=== PATIENT | male | born 1935 | race Caucasian/White ===

== ENCOUNTER → 2016-12-09 | Outpatient (CLI) | payer MEDICARE, BC | END | disposition home or self-care (01) | LOC: LABWHC1 13:45 | PROVIDERS: ATTEND Urology | DX: C61 Malignant neoplasm of prostate (principal) | CPT/HCPCS: 36415; 84153 ==

== ENCOUNTER → 2017-12-13 | Outpatient (CLI) | payer MEDICARE, BC | LOC: LABWHC1 15:31 | PROVIDERS: ATTEND Urology | DX: C61 Malignant neoplasm of prostate (principal); R97.21 Rising PSA following treatment for malignant neoplasm of prostate | CPT/HCPCS: 36415; 84153 ==

== ENCOUNTER → 2017-12-22 | Day surgery (SDC) | payer MEDICARE, BC ==
[2017-12-20 11:33] VITALS: BMI 24.2
[~2017-12-22] MED LIST: LACTATED RINGERS 1,000 ML IV ONE; LIDOCAINE 1% 20 ML VIAL (10MG/ML) FOR IV START INTRADERMA ONE; LIDOCAINE HCL/PF 20 MG/ML 10 ML AMP ONE; PROPOFOL 10 MG/ML 20 ML VIAL IV ONE
[2017-12-22 11:37] VITALS: RESP 16; TEMP 98.4
--- NOTE | 2017-12-22 11:55 | P.PCN ---
Date of Procedure: 12/22/17 Procedure(s) Performed: BRIEF HISTORY: Patient is a 82-year-old, pleasant, male, scheduled for an upper endoscopy as a part of evaluation of persistent dysphagia to solids for the last several months years duration. Symptoms have been progressively getting worse for the last 1 year. He feels the food gets stuck in his throat area. He denies any odynophagia. He reports no heartburn. In view of the symptoms he scheduled for an upper endoscopy with possible dilation. Last upper endoscopy was done and now 1999 for the similar symptoms and was unremarkable. PROCEDURE PERFORMED: Esophagogastroduodenoscopy with biopsy. PREOPERATIVE DIAGNOSIS: Progressive dysphagia to solids of several years duration.. IV sedation per anesthesia. PROCEDURE: After informed consent was obtained, the patient was brought into the endoscopy unit. IV sedation was administered by Anesthesia under continuous monitoring. Initially the Olympus GIF-140 video endoscope was inserted into the mouth. Esophagus intubated without any difficulty. It was gradually advanced into the stomach and duodenum and carefully examined. The bulb and the second part of the duodenum appeared normal. The scope at this time was withdrawn to the stomach, adequately insufflated with air, and upon careful examination, mucosa of the antrum, body, cardia and the fundus appeared normal. The scope was then withdrawn into the esophagus. Small to moderate size hiatal hernia noted. The GE junction was located at 36 cm from the incisors. There was short segment of Hoang's esophagus and a 5 mm proximal to the GE junction and this was biopsied. The rest of the esophagus appeared normal. There were no erosions or ulcerations seen area and the proximal. The esophagus was carefully examined and there was no Zenker's diverticulum or esophageal web identified. It appeared normal and the patient tolerated the procedure well. IMPRESSION: 1. Normal-appearing esophagus with no evidence of esophagitis, esophageal stricture or Zenker's diverticulum. 2. Small to moderate hiatal hernia/short segment Hoang's esophagus. RECOMMENDATIONS: The findings of this examination were discussed with the patient as well as his family. He was advised to follow with the biopsy results. He will continue with soft diet. If the biopsy confirms the presence of Hoang's esophagus he can have a repeat upper endoscopy in 2-3 years.
[2017-12-22 12:17] VITALS: BP 152/88; PULSE 72
== END ==
LOC: ORWHC2ENDO 09:44
PROVIDERS: ATTEND Internal Medicine Gastroenterology
DX: K21.0 Gastro-esophageal reflux disease with esophagitis (principal); K22.70 Barrett's esophagus without dysplasia; K44.9 Diaphragmatic hernia without obstruction or gangrene; E78.5 Hyperlipidemia, unspecified; F41.9 Anxiety disorder, unspecified; Z79.82 Long term (current) use of aspirin; Z79.899 Other long term (current) drug therapy; Z90.79 Acquired absence of other genital organ(s)
CPT/HCPCS: 88305; 43239; J2001; J2704

== ENCOUNTER → 2018-02-09 | Outpatient (CLI) | payer MEDICARE, BC ==
--- NOTE | 2018-02-10 07:22 | US ---
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 EXAM MEASUREMENTS: Right Kidney: 10.5 x 6.1 x 4.5 cm Left Kidney: 10.6 x 4.4 x 5.6 cm Post Void Residual Volume: 17.1 ml Right Kidney: Solid, hyperechoic mass is seen mid lateral cortex = 2.5 x 3.2 x 2.3cm and internal vas cularity is noted mid mass Left Kidney: No hydronephrosis or masses seen Bladder: wnl Bilateral Jets seen: not seen after 3 minute observation Normal Post Void Residual: yes IMPRESSION: 1. Solid mass right kidney. CT of the kidneys is advised for further evaluation.
== END | disposition home or self-care (01) ==
LOC: RADUSWWP 15:41
PROVIDERS: ATTEND Internal Medicine Geriatric Medicine
DX: N28.89 Other specified disorders of kidney and ureter (principal)
CPT/HCPCS: 76770

== ENCOUNTER → 2018-02-18 | Outpatient (CLI) | payer MEDICARE, BC ==
--- NOTE | 2018-02-20 17:43 | CT ---
EXAMINATION TYPE: CT abdomen wo/w con DATE OF EXAM: 02/18/2018 COMPARISON: Renal ultrasound dated 02/02/1718 HISTORY: Right renal mass. CT DLP: 461.9 mGycm Automated exposure control for dose reduction was used. TECHNIQUE: Helical acquisition of images was performed from the lung bases through the top of iliac crest to include entire abdomen. CONTRAST: Performed with Oral Contrast and without and with IV Contrast, patient injected with 100ml mL of Isov ue M300. FINDINGS: LUNG BASES: No significant abnormality is appreciated. LIVER/GB: The liver is unremarkable without focal mass. Gallbladder surgically absent. No intrahepati c biliary ductal dilatation. PANCREAS: Unremarkable enhancement without ductal dilatation. SPLEEN: No significant abnormality is seen. ADRENALS: Overall symmetric without focal nodularity. KIDNEYS: There is a suspicious enhancing right midpole solid renal mass measuring approximately 2.3 x 2.1 x 2.9 cm measured on series 7 image 23 and series 14 image 53. There is no enlargement or eviden ce of current invasion of the right renal vein. This is located within 2 mm of a mid pole calyx and t herefore the patient may not be a candidate for cryotherapy/RFA ablation. No other renal masses are s een bilaterally. Incidental note is made of a retroaortic right renal vein. No local surrounding nguyễn opathy is seen. No extension past heterogenous fascia. BOWEL: Scattered colonic diverticula are small without pericolonic fat stranding. No dilated large o r small bowel. There is decompression of the gastroesophageal junction and therefore incomplete evalu ation. Prominence at this level could relate to a small hiatal hernia. LYMPH NODES: No greater than 1 cm short axis lymph nodes are seen within the abdomen. OSSEOUS STRUCTURES: There are moderate multilevel degenerative changes of the visualized spine witho ut suspicious osseous lesion. 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 No suspicious o sseous lesions are visualized. FREE AIR: No free air is visualized. OTHER: There is extensive atherosclerosis of the abdominal aorta and its branches. IMPRESSION: SOLITARY SOLID ENHANCING 2.9 CM RIGHT MIDPOLE RENAL MASS THAT SHOULD BE CONSIDERED RENAL CELL CARCINO MA UNTIL PROVEN OTHERWISE. PERCUTANEOUS BIOPSY COULD BE PERFORMED. THIS IS WITHIN 2 MM OF A MINOR GABRIEL YX AND THEREFORE THE PATIENT MAY NOT BE A CANDIDATE FOR CRYOTHERAPY OR RFA ABLATION. NO CURRENT EVIDE NCE OF RENAL VEIN INVASION, SURROUNDING ADENOPATHY, OR SUSPICIOUS OSSEOUS METASTASIS.
== END | disposition home or self-care (01) ==
LOC: RADCTMAIN 15:30
PROVIDERS: ATTEND Urology
DX: N28.89 Other specified disorders of kidney and ureter (principal)
CPT/HCPCS: 82565; 84520; 74170; 36415; Q9967

== ENCOUNTER → 2018-04-13 | Outpatient (CLI) | payer MEDICARE, BC ==
--- NOTE | 2018-04-13 11:15 | FL ---
EXAMINATION TYPE: FL barium swallow DATE OF EXAM: 04/13/2018 COMPARISON: None HISTORY: Dysphasia TECHNIQUE: A double air contrast UGI study is performed. FINDINGS: Fluoroscopy time: 58 seconds Images: 24 Esophagus dilates to normal caliber has normal contour to the gastroesophageal junction. Small hiatal hernia is present. Gastroesophageal reflux was evident during this examination to the proximal esoph godfrey. There was episodes of coughing associated. Secondary tertiary contractions were evident. There is incomplete stripping of esophageal bolus the horizontal drinking position. IMPRESSIONS: 1. Gastroesophageal reflux to the proximal esophagus with coughing. 2. Presbyesophagus.
== END | disposition home or self-care (01) ==
LOC: RADFLWHC 10:10
PROVIDERS: ATTEND Otolaryngology
DX: K21.9 Gastro-esophageal reflux disease without esophagitis (principal); K22.8 Other specified diseases of esophagus
CPT/HCPCS: 74220

== ENCOUNTER → 2018-04-19 | Outpatient (CLI) | payer MEDICARE, BC ==
[2018-04-19 14:07] LABS: Basophils % (A) 1 %; Eosinophils # (A) 0.1 k/uL (0-0.7); Eosinophils % (A) 3 %; HCT 37.9 % (39.0-53.0); HGB 12.7 gm/dL (13.0-17.5); Lymphocytes # (A) 1.2 k/uL (1.0-4.8); Lymphocytes % (A) 22 %; MCH 31.3 pg (25.0-35.0); MCHC 33.5 g/dL (31.0-37.0); MCV 93.7 fL (80.0-100.0); Mean Platelet Volume 6.4; Monocytes # (A) 0.3 k/uL (0-1.0); Monocytes % (A) 6 %; Neutrophils # (A) 3.4 k/uL (1.3-7.7); Neutrophils % (A) 66 %; Platelet Count 227 k/uL (150-450); RBC 4.05 m/uL (4.30-5.90); WBC 5.2 k/uL (3.8-10.6)
[2018-04-19 14:17] LABS: Anion Gap 5 mmol/L; Blood Urea Nitrogen 13 mg/dL (9-20); Calcium 8.8 mg/dL (8.4-10.2); Carbon Dioxide 28 mmol/L (22-30); Chloride 105 mmol/L (98-107); Glucose 98 mg/dL (74-99); Potassium 4.2 mmol/L (3.5-5.1); Sodium 138 mmol/L (137-145)
== END | disposition home or self-care (01) ==
LOC: LABWHC1 13:35
PROVIDERS: ATTEND Urology
DX: Z01.812 Encounter for preprocedural laboratory examination (principal); N28.89 Other specified disorders of kidney and ureter; E78.00 Pure hypercholesterolemia, unspecified; R35.0 Frequency of micturition; R31.29 Other microscopic hematuria; D41.11 Neoplasm of uncertain behavior of right renal pelvis
CPT/HCPCS: 36415; 80048; 85025; 86850; 86900; 86901; 87086

== ENCOUNTER → 2018-06-08 | Outpatient (CLI) | payer MEDICARE, BC ==
[2018-06-08 12:21] LABS: Basophils % (A) 1 %; Eosinophils # (A) 0.1 k/uL (0-0.7); Eosinophils % (A) 2 %; HCT 42.5 % (39.0-53.0); HGB 13.4 gm/dL (13.0-17.5); Lymphocytes % (A) 20 %; MCH 30.1 pg (25.0-35.0); MCHC 31.5 g/dL (31.0-37.0); MCV 95.4 fL (80.0-100.0); Mean Platelet Volume 6.4; Monocytes # (A) 0.3 k/uL (0-1.0); Monocytes % (A) 7 %; Neutrophils # (A) 3.3 k/uL (1.3-7.7); Neutrophils % (A) 69 %; Platelet Count 335 k/uL (150-450); RBC 4.46 m/uL (4.30-5.90); RDW 13.7 % (11.5-15.5); WBC 4.8 k/uL (3.8-10.6)
[2018-06-08 13:06] LABS: Calcium 9.5 mg/dL (8.4-10.2); Potassium 4.5 mmol/L (3.5-5.1)
== END ==
LOC: LABPAT 11:24
PROVIDERS: ATTEND Urology
DX: Z01.812 Encounter for preprocedural laboratory examination (principal); D41.11 Neoplasm of uncertain behavior of right renal pelvis; E78.00 Pure hypercholesterolemia, unspecified; R31.29 Other microscopic hematuria; R35.0 Frequency of micturition
CPT/HCPCS: 36415; 80048; 85025; 86850; 86900; 86901; 87086

== ENCOUNTER → 2018-06-09 | Outpatient (CLI) | payer MEDICARE, BC | LOC: LABWHC1 11:15 | PROVIDERS: ATTEND Urology | DX: Z01.818 Encounter for other preprocedural examination (principal) | CPT/HCPCS: 36415; 93005 ==

== ENCOUNTER → 2018-08-26 | Outpatient (CLI) | payer MEDICARE, BC ==
--- NOTE | 2018-08-26 11:40 | FL ---
COMPARISON: NONE DATE OF EXAM: 08/26/2018 HISTORY: Dysphasia A number of thin and thick substances were ingested under the care of the department of speech pathol ogy. There is no evidence of aspiration or penetration. There is no evidence of obstruction. There is mild pooling within the vallecula and piriform sinus. 1.03 seconds of fluoroscopy utilized. No im ages submitted. IMPRESSION: 1. No evidence of aspiration or penetration.
== END | disposition home or self-care (01) ==
LOC: RADFLMAIN 10:53
PROVIDERS: ATTEND Otolaryngology
DX: R13.10 Dysphagia, unspecified (principal)
CPT/HCPCS: 74230

== ENCOUNTER → 2018-09-30 | Outpatient (CLI) | payer MEDICARE, BC ==
--- NOTE | 2018-09-30 14:21 | CT ---
EXAMINATION TYPE: CT abdomen w con DATE OF EXAM: 09/30/2018 COMPARISON: CT abdomen 02/18/2018 INDICATION: Kidney CA DLP: 513 mGycm, Automated exposure control for dose reduction was used. CONTRAST: 100 mL of Isovue 300. Study performed with Oral Contrast TECHNIQUE: Axial images were obtained from above the diaphragm to the pubic rami in the axial plane a t 5 mm thick sections. Reconstructed images are reviewed on the computer in the coronal plane. FINDINGS: Limited CT sections are obtained the lung bases. The lung bases are clear. CT ABDOMEN: Liver: Mild fatty infiltration may be present. Spleen: Normal Pancreas: Normal. Pancreatic duct is at the upper limits of normal. Adrenal glands: The adrenal glands are normal. Gallbladder: Surgically absent. Kidneys: No masses are evident. No hydronephrosis is present. There is low density extending from t he mid right renal cortex in the introitus fascia. This has irregular borders could be some fluid col lection. This measures 20 Hounsfield units. This may be 5.9 cm cranial caudal x 3.6 x 1.9 cm. Hemorrh age and urinoma considered. No enhancement is evident. This is at the level of the previous mass. De layed images were obtained through the kidneys, which remain unremarkable. Aorta: Vascular calcification is within the aorta. Right renal artery is retrocaval. Inferior vena cava: Normal. There is a retroaortic left renal vein. IMPRESSIONS: 1. Fluidlike collection extending from the kidney at the previous right renal mass location. Hematom a is considered most likely. Urinoma could be considered.
== END ==
LOC: RADCTMAIN 09:45
PROVIDERS: ATTEND Urology
DX: C64.1 Malignant neoplasm of right kidney, except renal pelvis (principal)
CPT/HCPCS: 82565; 84520; 74160; 36415; Q9967

== ENCOUNTER → 2019-06-23 | Outpatient (CLI) | payer MEDICARE, BC ==
[2019-06-23 09:06] LABS: Albumin 4.7 g/dL (3.5-5.0); Calcium 9.8 mg/dL (8.4-10.2); Potassium 4.1 mmol/L (3.5-5.1); Total Protein 7.6 g/dL (6.3-8.2)
--- NOTE | 2019-06-23 09:28 | XR ---
EXAMINATION TYPE: XR chest 2V DATE OF EXAM: 06/23/2019 COMPARISON: 11/28/2018 HISTORY: History of renal cell carcinoma. Physical exam. TECHNIQUE: Frontal and lateral views of the chest are obtained. FINDINGS: There is no focal air space opacity, pleural effusion, or pneumothorax seen. There is even tration of the right hemidiaphragm. The cardiac silhouette size is within normal limits. The osseou s structures are intact. Mild multilevel degenerative changes of the spine. Flattening of the diaphra gms on the lateral view indicative of underlying COPD. IMPRESSION: No acute cardiopulmonary process.
--- NOTE | 2019-06-23 10:51 | CT ---
EXAMINATION TYPE: CT abdomen w con DATE OF EXAM: 06/23/2019 COMPARISON: 09/30/2018 and 02/18/2018 HISTORY: 83-year-old male history of Renal cancer. Right kidney surgery last year. TECHNIQUE: Contiguous axial scanning of the abdomen following administration of 100 ml Isovue 300 IV contrast. Delayed images through the kidneys and coronal/sagittal reconstructions performed. CT DLP: 338.5 mGycm Automated exposure control for dose reduction was used. FINDINGS: Heart normal size without pericardial effusion. Coronary vessel calcifications are present. Lung base s clear without pleural effusion. No focal liver lesion or biliary ductal dilatation. Portal venous system is patent. Cholecystectomy clips. Adrenal glands, left kidney, spleen, and bilateral atrophic pancreas show no gross organomegaly. Retroaortic left renal vein. Redemonstrated postsurgical changes of resection along the lateral right kidney. The resection defect is redemonstrated at the mid pole with focal fluid and density interposed at the resection defect an d in the adjacent pararenal space currently measuring 2.8 cm versus 3.6 cm, previously. There is some intermingled fat now seen. No suspicious soft tissue nodularity or recurrent enhancing mass identifi ed. Moderate atherosclerotic calcifications abdominal aorta and iliac arteries. Moderate colonic stool and left-sided colonic diverticulosis. No dilated small bowel, free fluid, or free air. No mesenteric or retroperitoneal lymphadenopathy see n in the upper or midabdomen. The pelvis is not imaged. Bones: Degenerative changes at the SI joints. Mild to moderate degenerative disc disease throughout t he lumbar spine. Facet arthropathy lower lumbar spine. Stable bilateral L5 pars defects with grade 1 anterolisthesis at L5-S1. IMPRESSION: 1. REDEMONSTRATED RESECTION DEFECT ALONG THE LATERAL RIGHT KIDNEY WITH INTERPOSED POST SURGICAL FLUID EXTENDING INTO THE ADJACENT PARARENAL SPACE. THIS IS SLIGHTLY SMALLER NOW MEASURING 2.8 CM VERSUS 3. 6 CM, PREVIOUSLY. 2. NO SUSPICIOUS SOFT TISSUE NODULARITY OR RECURRENT ENHANCING MASS IS IDENTIFIED TO SUGGEST LOCOREGI ONAL RECURRENCE. NO EVIDENCE FOR METASTATIC DISEASE IN THE ABDOMEN. 3. 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
== END ==
LOC: RADCTMAIN 08:24
PROVIDERS: ATTEND Urology
DX: C64.1 Malignant neoplasm of right kidney, except renal pelvis (principal); C61 Malignant neoplasm of prostate; Z98.890 Other specified postprocedural states
CPT/HCPCS: 84153; 80053; 71046; 74160; 36415; Q9967

== ENCOUNTER → 2020-03-05 | Outpatient (CLI) | payer MEDICARE, BC ==
--- NOTE | 2020-03-05 13:00 | XR ---
EXAMINATION TYPE: XR chest 2V DATE OF EXAM: 03/05/2020 COMPARISON: 06/23/2019 HISTORY: 84-year-old male C64.1, renal cancer TECHNIQUE: Frontal and lateral views FINDINGS: The cardiomediastinal silhouette, aorta, and pulmonary vasculature are within normal limits. Lungs an d pleural spaces are clear. IMPRESSION: No acute cardiopulmonary process.
== END | disposition home or self-care (01) ==
LOC: RADXRMAIN 11:05
PROVIDERS: ATTEND Urology
DX: C64.1 Malignant neoplasm of right kidney, except renal pelvis (principal)
CPT/HCPCS: 71046

== ENCOUNTER → 2020-06-24 | Outpatient (CLI) | payer MEDICARE, BC ==
--- NOTE | 2020-06-24 11:49 | XR ---
EXAMINATION TYPE: XR chest 2V DATE OF EXAM: 06/24/2020 COMPARISON: 03/05/2020 HISTORY: Shortness of breath TECHNIQUE: Frontal and lateral views of the chest are obtained. FINDINGS: Scattered senescent parenchymal changes noted. Hyperinflation compatible with COPD. No evidence for infiltrate. No evidence for atelectasis. Heart size is stable. Mediastinal structures are stable and grossly unremarkable. No evidence for hilar prominence. Degenerative changes dorsal spine. IMPRESSION: 1. No evidence for acute pulmonary disease.
[2020-06-24 12:30] LABS: Albumin 4.4 g/dL (3.5-5.0); Calcium 9.5 mg/dL (8.4-10.2); Potassium 4.7 mmol/L (3.5-5.1); Total Bilirubin 0.9 mg/dL (0.2-1.3); Total Protein 6.9 g/dL (6.3-8.2)
--- NOTE | 2020-06-24 13:14 | CT ---
EXAMINATION TYPE: CT abdomen w con DATE OF EXAM: 06/24/2020 COMPARISON: CT abdomen June 23, 2019 and older CTs HISTORY: renal CA CT DLP: 303.3 mGycm, Automated Exposure Control for Dose Reduction was Utilized. CONTRAST: CT scan of the abdomen is performed with oral and with IV Contrast, patient injected with 100 mL of I sovue 300. FINDINGS: LUNG BASES: Mild posterior bibasilar linear scarring redemonstrated. Coronary artery calcification in the RCA distribution noted. LIVER/GB: Cholecystectomy clips redemonstrated. PANCREAS: No significant abnormality is seen. SPLEEN: No significant abnormality is seen. ADRENALS: No significant abnormality is seen. KIDNEYS: Symmetrical nodular uptake and excretion without concerning solid or cystic renal mass or hy dronephrosis bilaterally. Stable cortical defect with ill-defined soft tissue laterally midpole of th e right kidney shows no significant interval change from most recent CT. No enlargement or new enhanc ement noted. Retroaortic left renal vein which is normal variant. BOWEL: The oral contrast reaches level of the terminal ileum. No suspicious small or large bowel dila tation. Diverticula in the left colon. LYMPH NODES: No new greater than 1cm abdominal lymph nodes are appreciated. OSSEOUS STRUCTURES: Multilevel spurring in the spine. Persistent bilateral pars defect L5 level with subtle spondylolisthesis L5 on S1. Findings stable. OTHER: Moderate calcified plaque of the aorta extends into branch vessels. IMPRESSION: No suspicious new mass or adenopathy to suggest neoplastic recurrence. Posttreatment carlota nges right kidney midpole level laterally redemonstrated.
== END | disposition home or self-care (01) ==
LOC: RADCTMAIN 11:19
PROVIDERS: ATTEND Urology
DX: C64.1 Malignant neoplasm of right kidney, except renal pelvis (principal); Z98.890 Other specified postprocedural states
CPT/HCPCS: 80053; 71046; 74160; 36415; Q9967

== ENCOUNTER → 2020-12-23 | Outpatient (CLI) | payer MEDICARE, BC | END | disposition home or self-care (01) | LOC: LABWHC1 10:04 | PROVIDERS: ATTEND Urology | DX: C61 Malignant neoplasm of prostate (principal); R97.21 Rising PSA following treatment for malignant neoplasm of prostate | CPT/HCPCS: 36415; 84153 ==

== ENCOUNTER → 2021-06-20 | Outpatient (CLI) | payer MEDICARE, BC ==
--- NOTE | 2021-06-20 16:01 | XR ---
EXAMINATION TYPE: XR chest 2V DATE OF EXAM: 06/20/2021 COMPARISON: 06/24/2020 INDICATION: Renal cancer TECHNIQUE: Frontal and lateral views of the chest are obtained. FINDINGS: The heart size is normal. The pulmonary vasculature is normal. The lungs are clear. IMPRESSION: 1. No acute pulmonary process.
[2021-06-20 20:23] LABS: African American GFR (CKD) 80.2 (60.0-200.0); Albumin 4.2 g/dL (3.8-4.9); Albumin/Globulin Ratio 2.5 (1.60-3.17); Anion Gap 8.9 mmol/L (4.00-12.00); BUN/Creat Ratio 7.23 Ratio (12.00-20.00); Blood Urea Nitrogen 7.2 mg/dL (9.0-27.0); Calcium 9.4 mg/dL (8.7-10.3); Carbon Dioxide 28.8 mmol/L (21.6-31.8); Globulin 1.7 g/dL (1.6-3.3); Non-African American GFR(CKD) 69.2 (60.0-200.0); Prostate Specific Antigen 1.6 ng/mL (0.00-6.50); Total Bilirubin 0.4 mg/dL (0.30-1.20); Total Protein 5.9 g/dL (6.2-8.2)
== END | disposition home or self-care (01) ==
LOC: LABWHC1 11:28
PROVIDERS: ATTEND Urology
DX: C61 Malignant neoplasm of prostate (principal)
CPT/HCPCS: 36415; 71046; 80053; 84153

== ENCOUNTER 2021-11-04 06:50 | Day surgery (SDC) | payer MEDICARE ==
[2021-10-31 10:54] VITALS: BMI 21.1
[2021-11-04] MEDS ORDERED: LACTATED RINGERS 1,000 ML IV SCH (07:00)
[2021-11-04] MEDS ORDERED: LIDOCAINE 1% (10MG/ML) FOR IV START INTRADERMA PRN (07:00)
[2021-11-04 07:39] VITALS: TEMP 98.1
[2021-11-04] MEDS ORDERED: LIDOCAINE 1% INJ 10MG/ML (20 ML MDV) ONE (08:13)
[2021-11-04] MEDS ORDERED: PROPOFOL 10 MG/ML 20 ML VIAL IV ONE (08:13)
--- NOTE | 2021-11-04 08:26 | P.PCN ---
Date of Procedure: 11/04/21 Procedure(s) Performed: BRIEF HISTORY: Patient is a 85-year-old, pleasant, white male scheduled for an upper endoscopy as a part of evaluation of progressive dysphagia to solids for the last several years duration. His symptoms are slowly getting worse lately.. He complains of severe dryness in his mouth. He did have an upper endoscopy in December 2017 revealed small hiatal hernia and short segment Hoang's esophagus. He isn't remains on Prilosec 20 mg daily.. PROCEDURE PERFORMED: Esophagogastroduodenoscopy with biopsy. PREOPERATIVE DIAGNOSIS: Progressive dysphagia to solids. IV sedation per anesthesia. PROCEDURE: After informed consent was obtained, the patient was brought into the endoscopy unit. IV sedation was administered by Anesthesia under continuous monitoring. Initially the Olympus GIF-140 video endoscope was inserted into the mouth. Esophagus intubated without any difficulty. It was gradually advanced into the stomach and duodenum and carefully examined. The bulb and the second part of the duodenum appeared normal. The scope at this time was withdrawn to the stomach, adequately insufflated with air, and upon careful examination, mucosa of the antrum, body, cardia and the fundus appeared normal. The scope was then withdrawn into the esophagus. The GE junction was located at 39 cm from the incisors. There was a small hiatal hernia noted. There was a 5 mm tongue of Hoang's appearing mucosa just proximal to the GE junction consistent with Hoang's esophagus and this was biopsied. The rest of the esophagus appeared normal. There were no erosions or ulcerations seen. The proximal cervical esophagus was carefully examined and there was no obvious stricture identified. There was mild cricopharyngeal dysfunction noted but there was no impedance to the passage of the scope. There was no evidence of Zenker's diverticulum seen and the patient tolerated the procedure well. IMPRESSION: 1. Small hiatal hernia and short segment Hoang's esophagus. 2. No evidence of esophagitis or esophageal stricture 3. 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 RECOMMENDATIONS: The findings of this examination were discussed with the patient as well as his family. He was advised to continue with soft foods and. Continue with Prilosec 20 mg daily and follow antireflux measures. I'll of with the biopsy results..
[2021-11-04 08:41] VITALS: RESP 16
[2021-11-04 08:44] VITALS: BP 133/61; PULSE 61
== END 2021-11-04 09:12 | disposition home or self-care (01) ==
LOC: ORWHC2ENDO 06:50
PROVIDERS: ATTEND Internal Medicine Gastroenterology
DX: K22.70 Barrett's esophagus without dysplasia (principal); K44.9 Diaphragmatic hernia without obstruction or gangrene; J39.2 Other diseases of pharynx; E78.5 Hyperlipidemia, unspecified; Z85.46 Personal history of malignant neoplasm of prostate; Z85.528 Personal history of other malignant neoplasm of kidney; Z79.82 Long term (current) use of aspirin; Z79.899 Other long term (current) drug therapy; K21.9 Gastro-esophageal reflux disease without esophagitis
CPT/HCPCS: 88305; 43239; J2001; J2704

== ENCOUNTER → 2021-12-15 | Outpatient (CLI) | payer MEDICARE | END | disposition home or self-care (01) | LOC: LABWHC1 09:02 | PROVIDERS: ATTEND Urology | DX: C61 Malignant neoplasm of prostate (principal) | CPT/HCPCS: 36415; 84153 ==

== ENCOUNTER → 2022-06-22 | Outpatient (CLI) | payer MEDICARE ==
--- NOTE | 2022-06-22 11:49 | XR ---
EXAMINATION TYPE: XR chest 2V DATE OF EXAM: 06/22/2022 11:42 AM COMPARISON: Chest radiographs from 06/20/2021. TECHNIQUE: XR chest 2V Frontal and lateral views of the chest. CLINICAL INDICATION:Male, 86 years old with history of C641; FINDINGS: Lungs/Pleura: There is flattening of the diaphragm with increased lucency of the lungs. No evidence o f pneumothorax, pleural effusion or focal consolidation. Pulmonary vascularity: Unremarkable. Heart/mediastinum: Cardiomediastinal silhouette is unremarkable. Atherosclerotic calcifications are seen in the aorta. Musculoskeletal: Multiple level degenerative disc disease changes seen throughout the spine. IMPRESSION: 1. No acute cardiopulmonary disease process. No significant change from prior examination. 2. COPD changes.
[2022-06-22 18:27] LABS: African American GFR (CKD) 85.9 (60.0-200.0); Albumin 4.2 g/dL (3.8-4.9); Albumin/Globulin Ratio 2.6 (1.60-3.17); Anion Gap 7.8 mmol/L (10.00-18.00); BUN/Creat Ratio 10.68 Ratio (12.00-20.00); Blood Urea Nitrogen 9.9 mg/dL (9.0-27.0); Calcium 9.3 mg/dL (8.7-10.3); Carbon Dioxide 29.8 mmol/L (20.0-27.5); Globulin 1.6 g/dL (1.6-3.3); Non-African American GFR(CKD) 74.1 (60.0-200.0); Potassium 4.2 mmol/L (3.5-5.5); Prostate Specific Antigen 1.4 ng/mL (0.00-6.50); Total Bilirubin 0.7 mg/dL (0.30-1.20); Total Protein 5.9 g/dL (6.2-8.2)
== END | disposition home or self-care (01) ==
LOC: LABPAT 11:25
PROVIDERS: ATTEND Urology
DX: C61 Malignant neoplasm of prostate (principal); C64.1 Malignant neoplasm of right kidney, except renal pelvis
CPT/HCPCS: 36415; 71046; 80053; 84153

== ENCOUNTER 2022-11-28 10:45 | Emergency (ER) | payer MEDICARE ==
[2022-11-28 10:51] VITALS: RESP 18; TEMP 97.6
--- NOTE | 2022-11-28 11:20 | ED ---
General Adult HPI - General Chief complaint: Extremity Problem,Nontraumatic Stated complaint: Right arm pain Time Seen by Provider: 11/28/22 11:09 Source: patient, RN notes reviewed Mode of arrival: EMS Limitations: no limitations - History of Present Illness Initial comments: Patient is a pleasant 87-year-old male presenting to the emergency department with concerns with right arm pain. Onset of symptoms was yesterday morning while moving a small refrigerator, approximate 40 pounds. Patient has some discomfort of his right upper arm. Patient did have some swelling. Patient has noticed ecchymosis that has increased since that time. Patient does have some weakness with his right arm, especially with flexion at the elbow. Discomfort otherwise is mild. No history of similar symptoms previously. Patient is right-hand dominant. - Related Data Home Medications Medication Instructions Recorded Confirmed ALPRAZolam [Xanax] 0.5 mg PO HS PRN 12/20/17 09/11/22 Aspirin [Adult Low Dose Aspirin EC] 81 mg PO HS 12/20/17 09/08/22 Omeprazole 20 mg PO DAILY 12/20/17 09/11/22 Simvastatin [Zocor] 20 mg PO HS 12/20/17 09/11/22 Zolpidem [Ambien] 10 mg PO HS PRN 12/20/17 09/11/22 Clindamycin Phosphate [Clindagel 1 applic TOPICAL DIRECTED PRN 10/31/21 09/11/22 1%] Fluticasone Nasal [place] [Flonase 1 spray EA NOSTRIL DAILY PRN 10/31/21 09/11/22 Nasal [place]] Folic Acid 1 mg PO DAILY 10/31/21 09/11/22 Gabapentin [Neurontin] 400 mg PO TID 10/31/21 09/11/22 Triamcinolone 0.1% Lotion [Kenalog 1 applic TOPICAL DIRECTED PRN 10/31/21 09/11/22 0.1% Lotion] metHOTREXate sodium [Methotrexate] 6 tab PO PHILLIP 10/31/21 09/11/22 Difluprednate [Difluprednate Ophth 1 drop RIGHT EYE QID 09/08/22 09/11/22 Soln] Ofloxacin 0.3% Ophth Soln [Ocuflox 1 drops BOTH EYES QID 09/08/22 09/11/22 Ophth Soln] Allergies Allergy/AdvReac Type Severity Reaction Status Date / Time No Known Allergies Allergy Verified 11/28/22 10:51 Review of Systems ROS Statement: Those systems with pertinent positive or pertinent negative responses have been documented in the HPI. ROS Other: All systems not noted in ROS Statement are negative. Constitutional: Denies: fever Eyes: Denies: eye pain ENT: Denies: ear pain Respiratory: Denies: cough Cardiovascular: Denies: chest pain Endocrine: Denies: fatigue Genitourinary: Denies: urgency Musculoskeletal: Reports: as per HPI Skin: Reports: as per HPI Past Medical History Past Medical History: Cancer, Eye Disorder, GERD/Reflux, Hyperlipidemia, Memory Impairment, Osteoarthritis (OA) Additional Past Medical History / Comment(s): Hx Prostate cancer May 2001. Hx right kidney cancer 2018. Glaucoma. Numbness in heels. 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 "Little short term memory loss". occasional skin rash. none at this time. intermittent swelling to rt lower leg History of Any Multi-Drug Resistant Organisms: None Reported Past Surgical History: Cholecystectomy, Orthopedic Surgery, Prostate Surgery Additional Past Surgical History / Comment(s): EGD, left achilles repair, right carpal tunnel release, radiation X36 for prostate cancer, bilateral cataract surgery, right kidney cancer removed. eye surgery- stent placed helps with pressure in the eyes Past Anesthesia/Blood Transfusion Reactions: No Reported Reaction Past Psychological History: Anxiety, Depression Smoking Status: Former smoker - Past Family History Mother Family Medical History: No Reported History General Exam Limitations: no limitations General appearance: alert, in no apparent distress Head exam: Present: normocephalic Eye exam: Present: normal appearance Neck exam: Absent: tenderness Respiratory exam: Present: normal lung sounds bilaterally Cardiovascular Exam: Present: regular rate, normal rhythm Expanded Peripheral pulses: 2+: Radial (R) GI/Abdominal exam: Present: soft. Absent: tenderness Extremities exam: Present: tenderness (Mild tenderness right upper arm near area of biceps insertion. There is mild associated swelling and moderate ecchymosis. Distally the extremity is neurovascularly intact.), other (Decreased strength with flexion of the elbow) Neurological exam: Present: alert, other (Decreased strength with flexion right upper arm at the elbow) Psychiatric exam: Present: normal affect, normal mood Skin exam: Present: other (Ecchymosis) Course Vital Signs 11/28/22 10:47 Temperature 97.6 F Pulse Rate 74 Respiratory 18 Rate Blood Pressure 148/68 O2 Sat by Pulse 99 Oximetry Medical Decision Making - Medical Decision Making Was pt. sent in by a medical professional or institution ([facility]ONI Holland, OPERATING ROOM TECH, urgent care, hospital, or fpc...) When possible be specific @ -No Did you speak to anyone other than the patient for history (EMS, parent, family, police, friend...)? What history was obtained from this source @ -No Did you review nursing and triage notes (agree or disagree)? Why? @ -I reviewed and agree with nursing and triage notes Were old charts reviewed (outside hosp., previous admission, EMS record, old EKG, old radiological studies, urgent care reports/EKG's, fpc records)? Report findings @ -No old charts were reviewed Differential Diagnosis (chest pain, altered mental status, abdominal pain women, abdominal pain men, vaginal bleeding, weakness, fever, dyspnea, syncope, headache, dizziness, GI bleed, back pain, seizure, CVA, palpatations, mental health)? @ -not applicable EKG interpreted by me (3pts min.). @ -As above X-rays interpreted by me (1pt min.). @ -X-ray right humerus shows no acute abnormality CT interpreted by me (1pt min.). @ -None done U/S interpreted by me (1pt. min.). @ -Report reviewed What testing was considered but not performed or refused? (CT, X-rays, U/S, labs)? Why? @ -None What meds were considered but not given or refused? Why? @ -None Did you discuss the management of the patient with other professionals (professionals i.e. ANTONI Holland, OPERATING ROOM TECH, lab, RT, psych nurse, criminal justice social worker, simulation tech, teacher, commercial loan officer, family independence case manager)? Give summary @ -No Was smoking cessation discussed for >3mins.? @ -No Was critical care preformed (if so, how long)? @ -No Were there social determinants of health that impacted care today? How? (Homelessness, low income, unemployed, alcoholism, drug addiction, transportation, low edu. Level, literacy, decrease access to med. care, retirement, rehab)? @ -No Was there de-escalation of care discussed even if they declined (Discuss DNR or withdrawal of care, Hospice)? DNR status @ -No What co-morbidities impacted this encounter? (DM, HTN, Smoking, COPD, CAD, Cancer, CVA, ARF, Chemo, Hep., AIDS, mental health diagnosis, sleep apnea, morbid obesity)? @ -None Was patient admitted / discharged? Hospital course, mention meds given and route, prescriptions, significant lab abnormalities, going to OR and other perti nent info. @ -Patient will be discharged for orthopedic follow-up. There is concern for tendon rupture. Patient will have sling and advised not to use his arm Undiagnosed new problem with uncertain prognosis? @ -No Drug Therapy requiring intensive monitoring for toxicity (Heparin, Nitro, Insulin, Cardizem)? @ -No Were any procedures done? @ -No Diagnosis/symptom? @ -Biceps tendon rupture Acute, or Chronic, or Acute on Chronic? @ -Acute Uncomplicated (without systemic symptoms) or Complicated (systemic symptoms)? @ -default Side effects of treatment? @ -No Exacerbation, Progression, or Severe Exacerbation? @ -No Poses a threat to life or bodily function? How? (Chest pain, [place], [place], pneumonia, PE, COPD, DKA, ARF, appy, cholecystitis, CVA, Diverticulitis, Homicidal, Suicidal, threat to staff... and all critical care pts) @ -No Disposition Clinical Impression: Biceps tendon rupture Disposition: HOME SELF-CARE Condition: Stable Instructions (If sedation given, give patient instructions): Tendon Rupture (ED) Additional Instructions: Please do follow-up with orthopedics in the beginning of the week. There is concern for tendon rupture. Use sling. Ice as needed. Return for increased pain, swelling, worsening or change in symptoms or any other concerns. Is patient prescribed a controlled substance at d/c from ED?: No Referrals: Kishor Braxton MD [Primary Care Provider] - 1-2 days Fernando Delgadillo DO [Doctor of Osteopathic Medicine] - 1-2 days Time of Disposition: 12:59
--- NOTE | 2022-11-28 11:58 | US ---
EXAMINATION TYPE: US venous doppler duplex UE RT DATE OF EXAM: 11/28/2022 COMPARISON: NONE CLINICAL INDICATION: Male, 87 years old with history of pain, swelling; Bruising and pain medial righ t arm after heavy lifting SIDE PERFORMED: Right Grayscale, color doppler, spectral doppler imaging performed of the deep veins of the upper extremiti es. There is normal flow, compressibility and vascular waveforms. Right Arm: Negative for DVT IMPRESSION: No deep venous thrombosis of the right upper extremity.
--- NOTE | 2022-11-28 12:45 | XR ---
EXAMINATION TYPE: XR humerus RT DATE OF EXAM: 11/28/2022 12:32 PM INDICATION: Patient age:Male; 87 years old; Reason for study: pain, swelling; COMPARISON: None TECHNIQUE: The right humerus was examined in frontal and lateral projections. FINDINGS: No evidence of acute osseous pathology, joint dislocation, or soft tissue swelling. The rem aining portions of the visualized chest are unremarkable. Degeneration changes of the acromioclavicul ar and glenohumeral joints. IMPRESSION: 1. No acute osseous pathology. Consider further evaluation MRI for soft tissue injury. 2. Mild right shoulder osteoarthrosis.
[2022-11-28 13:02] VITALS: BP 130/63; PULSE 78
== END 2022-11-28 13:38 | disposition home or self-care (01) ==
LOC: EC 10:45
DX: M66.829 Spontaneous rupture of other tendons, unspecified upper arm (principal); M19.011 Primary osteoarthritis, right shoulder; K21.9 Gastro-esophageal reflux disease without esophagitis; E78.5 Hyperlipidemia, unspecified; F41.9 Anxiety disorder, unspecified; F32.A Depression, unspecified; Z87.891 Personal history of nicotine dependence; Z79.82 Long term (current) use of aspirin; Z79.899 Other long term (current) drug therapy
CPT/HCPCS: 99284

== ENCOUNTER 2023-05-25 13:04 | Day surgery (SDC) | payer MEDICARE ==
[~2023-05-25 13:04] MED LIST changes: +ACETAMINOPHEN TAB 500 MG TAB PO PRN; +HEPARIN SODIUM,PORCINE/PF 5,000 UNIT/0.5 ML SYRINGE SQ PRN; -LACTATED RINGERS 1,000 ML IV ONE; -LIDOCAINE 1% 20 ML VIAL (10MG/ML) FOR IV START INTRADERMA ONE; -LIDOCAINE HCL/PF 20 MG/ML 10 ML AMP ONE; -PROPOFOL 10 MG/ML 20 ML VIAL IV ONE
[2023-05-25] MEDS ORDERED: LACTATED RINGERS 1,000 ML IV ONE ×3 (13:40→16:30)
[2023-05-25] MEDS ORDERED: ONDANSETRON 4 MG/2 ML VIAL ONE (13:45)
--- NOTE | 2023-05-25 13:58 | P.GSHP ---
History of Present Illness H&P Date: 05/25/23 Chief Complaint: Left inguinal hernia 87-year-old male with enlarging hernia left groin. Patient with mild pain at times. Patient with previous history of open prostatectomy. Past Medical History Past Medical History: Cancer, Eye Disorder, GERD/Reflux, Memory Impairment, Osteoarthritis (OA) Additional Past Medical History / Comment(s): Hx Prostate cancer May 2001. Hx right kidney cancer 2017. Glaucoma. Numbness in heels. 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 "Little short term memory loss". occasional skin rash. none at this time. 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 eye surgery- stent placed helps with pressure in the eyes Past Anesthesia/Blood Transfusion Reactions: No Reported Reaction Smoking Status: Former smoker - Past Family History Mother Family Medical History: No Reported History Medications and Allergies Home Medications Medication Instructions Recorded Confirmed Type ALPRAZolam [Xanax] 0.5 mg PO HS PRN 12/20/17 05/25/23 History Aspirin [Adult Low Dose Aspirin EC] 81 mg PO HS 12/20/17 05/25/23 History Omeprazole 20 mg PO DAILY 12/20/17 05/25/23 History Simvastatin [Zocor] 20 mg PO HS 12/20/17 05/25/23 History Zolpidem [Ambien] 10 mg PO HS PRN 12/20/17 05/25/23 History Folic Acid 1 mg PO DAILY 10/31/21 05/25/23 History Gabapentin [Neurontin] 400 mg PO TID 10/31/21 05/25/23 History Triamcinolone 0.1% Lotion [Kenalog 1 applic TOPICAL DIRECTED PRN 10/31/21 05/25/23 History 0.1% Lotion] metHOTREXate sodium [Methotrexate] 6 tab PO PHILLIP 10/31/21 05/25/23 History Difluprednate [Difluprednate Ophth 1 drop RIGHT EYE QID 09/08/22 05/25/23 History Soln] Ofloxacin 0.3% Ophth Soln [Ocuflox 1 drops BOTH EYES QID 09/08/22 05/25/23 History Ophth Soln] Timolol (Unk) 1 drop RIGHT EYE DAILY 05/21/23 05/25/23 History Allergies Allergy/AdvReac Type Severity Reaction Status Date / Time No Known Allergies Allergy Verified 05/25/23 13:49 Surgical - Exam Physical exam: General: Well-developed, well-nourished HEENT: Normocephalic, sclerae nonicteric Abdomen: Nontender, nondistended, reducible left inguinal hernia Extremities: No edema Neuro: Alert and oriented Assessment and Plan (1) Left inguinal hernia Narrative/Plan: 87-year-old male with left inguinal hernia. We'll proceed with open repair left inguinal hernia with mesh. Risks of bleeding, infection, recurrence, bladder and bowel injury, numbness, nerve injury were discussed with the patient. The patient understands and wishes to proceed. Current Visit: Yes Status: Acute Code(s): K40.90 - UNIL INGUINAL HERNIA, W/O OBST OR GANGR, NOT SPCF RECUR SNOMED Code(s): 731085896
[2023-05-25 14:15] LABS: Basophils % (A) 1 %; Eosinophils # (A) 0.1 k/uL (0-0.7); Eosinophils % (A) 3 %; HCT 41.1 % (39.0-53.0); Lymphocytes # (A) 1.3 k/uL (1.0-4.8); Lymphocytes % (A) 25 %; MCHC 34.1 g/dL (31.0-37.0); MCV 99.8 fL (80.0-100.0); Mean Platelet Volume 7.3; Monocytes # (A) 0.3 k/uL (0-1.0); Monocytes % (A) 6 %; Neutrophils # (A) 3.5 k/uL (1.3-7.7); Neutrophils % (A) 65 %; Platelet Count 226 k/uL (150-450); RBC 4.11 m/uL (4.30-5.90); WBC 5.3 k/uL (3.8-10.6)
[2023-05-25] MEDS ORDERED: DEXAMETHASONE SOD PHOSPHATE 4 MG/ML 1 ML VIAL IVP ONE (14:15)
[2023-05-25] MEDS ORDERED: ONDANSETRON 4 MG/2 ML VIAL IVP ONE (14:15)
[2023-05-25] MEDS ORDERED: KETAMINE HCL IN 0.9 % NACL 50 MG/5 ML SYRINGE ONE (14:24)
[2023-05-25] MEDS ORDERED: PROPOFOL 10 MG/ML 20 ML VIAL IV ONE (14:24)
[2023-05-25] MEDS ORDERED: ePHEDrine 50 MG/ML 1 ML VIAL ONE (14:24)
[2023-05-25] MEDS ORDERED: ROCURONIUM 10 MG/ML (5 ML VIAL) IV ONE (14:24)
[2023-05-25] MEDS ORDERED: fentaNYL (PF) 50 MCG/ML 2 ML AMP ONE (14:24)
[2023-05-25] MEDS ORDERED: LIDOCAINE 1% INJ 10MG/ML (20 ML MDV) ONE (14:24)
[2023-05-25] MEDS ORDERED: NEOSTIGMINE 1 MG/ML 10 ML VIAL ONE (14:24)
[2023-05-25] MEDS ORDERED: GLYCOPYRROLATE 0.2 MG/ML 2 ML VIAL ONE (14:24)
[2023-05-25 14:52] LABS: African American GFR (CKD) >90 (>60 ml/min/1.73 sqM); Anion Gap 9 mmol/L; Blood Urea Nitrogen 16 mg/dL (9-20); Calcium 9.4 mg/dL (8.4-10.2); Carbon Dioxide 28 mmol/L (22-30); Chloride 103 mmol/L (98-107); Glucose 86 mg/dL (74-99); Non-African American GFR(CKD) 80 (>60 ml/min/1.73 sqM); Potassium 4.4 mmol/L (3.5-5.1); Sodium 140 mmol/L (137-145)
[2023-05-25] MEDS ORDERED: BUPIVACAINE (PF) 0.25% 30 ML VIAL SQ ONE (15:42)
[2023-05-25 16:14] VITALS: TEMP 97
[2023-05-25] MEDS ORDERED: traMADol 50 MG TAB PO STA (16:18)
--- NOTE | 2023-05-25 16:22 | P.OP ---
Date of Procedure: 05/25/23 Procedure(s) Performed: PREOPERATIVE DIAGNOSIS: Left inguinal hernia POSTOPERATIVE DIAGNOSIS: Left indirect inguinal hernia PROCEDURE: Open repair left indirect inguinal hernia with mesh SURGEON: Dr. Strong ANESTHESIA: General OPERATIVE PROCEDURE DETAILS: Patient was placed in the operating table in the supine position and placed under general anesthesia. An oblique incision was made in the left groin. Dissection down through the subcutaneous tissues took place using electrocautery. The external oblique fascia was incised using a scalpel. This opening was lengthened using the Metzenbaum scissors. The spermatic cord was encircled with a [place] drain. The spermatic cord structures were identified and preserved. Careful dissection revealed an indirect hernia sac. This was carefully dissected back to the internal inguinal ring where it was ligated using 2 separate 0 silk stick tie sutures. Prior to doing so the hernia sac was opened. A small adhesion from the sigmoid colon to the inner aspect of the hernia sac was noted and lysed sharply. The colon was not well away from our internal ring. A 2 inch by four-inch Prolene mesh was cut to fit on the exposed fascia. This was sutured to the pubic tubercle the folding edge of the inguinal ligament and the conjoined tendon using interrupted 0 Vicryl sutures. A slit was created in the mesh and the mesh was wrapped around the spermatic cord and sutured back to itself. The external oblique was then reapproximated using a running 2-0 Vicryl suture. The subcutaneous tissues were reapproximated using a 3-0 Vicryl sutures. The skin was closed using 4-0 Monocryl sutures. Skin glue and sterile dressings were then applied. TYPE OF MESH USED: Flat Prolene LOCATION OF MESH: [place] FIXATION: 2-0 Vicryl PREOPERATIVE DISCUSSION ON SMOKING CESSASTION: Yes PREOPERATIVE DISCUSSION ON MORBID OBESITY: Yes PREOPERATIVE DISCUSSION ON APPROPRIATE USE OF NARCOTIC USE: Yes PREOPERATIVE EDUCATION: Multi Modal, Smoking Cessation and Weight Loss with BMI over 35. DISPOSITION: Stable to recovery room
[2023-05-25] MEDS: HYDROmorphone 0.5 MG/0.5 ML SYRINGE IVP ONE ×2 (16:40→16:50)
[2023-05-25] MEDS ORDERED: hydrALAZINE HCL 20 MG/ML 1 ML VIAL IVP ONE (16:44)
[2023-05-25 17:28] VITALS: RESP 20
[2023-05-25] MEDS ORDERED: ACETAMINOPHEN TAB 325 MG TAB PO SCH (18:00)
[2023-05-25 18:40] VITALS: BP 159/70; PULSE 67
[2023-05-25] MEDS ORDERED: IBUPROFEN 600 MG TAB PO SCH (19:30)
== END 2023-05-25 18:40 | disposition home or self-care (01) ==
LOC: OR 13:04
PROVIDERS: ATTEND Surgery
DX: K40.90 Unilateral inguinal hernia, without obstruction or gangrene, not specified as recurrent (principal); M19.90 Unspecified osteoarthritis, unspecified site; K21.9 Gastro-esophageal reflux disease without esophagitis; Z79.82 Long term (current) use of aspirin; Z85.46 Personal history of malignant neoplasm of prostate; Z85.528 Personal history of other malignant neoplasm of kidney; Z87.891 Personal history of nicotine dependence; Z90.49 Acquired absence of other specified parts of digestive tract; Z79.899 Other long term (current) drug therapy
CPT/HCPCS: 80048; 85025; 49505; C1781; J0360; J1100; J2710; J0690; J2405; J2001; J3010; J2704; J1170; J1644; J0665; 88302

== ENCOUNTER → 2023-06-28 | Outpatient (CLI) | payer MEDICARE ==
[2023-06-28 12:31] LABS: ALT 17 U/L (4-49); AST 28 U/L (17-59); African American GFR (CKD) 89 (>60 ml/min/1.73 sqM); Albumin/Globulin Ratio 1.7; Alkaline Phosphatase 62 U/L (38-126); Anion Gap 7 mmol/L; Blood Urea Nitrogen 13 mg/dL (9-20); Calcium 9.1 mg/dL (8.4-10.2); Carbon Dioxide 30 mmol/L (22-30); Chloride 103 mmol/L (98-107); Globulin 2.4 g/dL; Glucose 84 mg/dL (74-99); Non-African American GFR(CKD) 77 (>60 ml/min/1.73 sqM); Potassium 4.4 mmol/L (3.5-5.1); Sodium 140 mmol/L (137-145); Total Bilirubin 0.8 mg/dL (0.2-1.3); Total Protein 6.4 g/dL (6.3-8.2)
--- NOTE | 2023-06-28 13:13 | XR ---
EXAMINATION TYPE: XR chest 2V DATE OF EXAM: 06/28/2023 COMPARISON: 06/22/2022 HISTORY: Shortness of breath TECHNIQUE: Frontal and lateral views of the chest are obtained. FINDINGS: Scattered senescent parenchymal changes noted. Hyperinflation compatible with COPD. No evidence for infiltrate. No evidence for atelectasis. Heart size is stable. Mediastinal structures are stable and grossly unremarkable. No evidence for hilar prominence. Degenerative changes dorsal spine. IMPRESSION: 1. No evidence for acute pulmonary disease.
--- NOTE | 2023-06-28 13:20 | CT ---
EXAMINATION TYPE: CT abdomen w con CT DLP: 264.1 mGycm, Automated exposure control for dose reduction was used. DATE OF EXAM: 06/28/2023 1:13 PM COMPARISON: CT abdomen 06/24/2020 CLINICAL INDICATION:Male, 87 years old with history of C64.1 RIGHT RENAL CANCER; right renal cancer TECHNIQUE: Standard CT of the abdomen following the administration of 100 cc of Isovue 300 IV contr ast material and oral contrast. Coronal and sagittal reformats were performed. FINDINGS: LOWER CHEST: Right lower lobe reticular nodular opacities (series 4, image 11). ABDOMEN LIVER: No focal lesion. GALLBLADDER AND BILE DUCTS: The gallbladder is surgically absent. PANCREAS: Unremarkable. SPLEEN: Unremarkable. ADRENAL GLANDS: Unremarkable. KIDNEYS AND URETERS: No evidence of hydronephrosis or renal calculus. The is enhance symmetrically. P ostsurgical changes from partial right nephrectomy with unchanged appearance of fat and fluid within the surgical bed. No enhancing soft tissue within the surgical bed to suggest local recurrence. Contr ast is demonstrated within both collecting systems on the delayed phase. STOMACH AND BOWEL: Stomach and duodenum are unremarkable distal colonic diverticulosis without eviden ce for acute diverticulitis. Enteric contrast reaches the mid small bowel. No evidence of bowel obstr uction. PERITONEUM: No evidence of pneumoperitoneum or free fluid. VASCULATURE: Moderate atherosclerotic calcifications are present throughout the abdominal aorta and i ts branches. No evidence of aortic aneurysm. MUSCULOSKELETAL: No acute osseous abnormalities. Degenerative changes of visualized spine. No aggress nataliya osseous lesion. LYMPH NODES: No gross evidence for lymphadenopathy. SOFT TISSUE/ABDOMINAL WALL: Unremarkable IMPRESSION: 1. Postsurgical changes from right partial nephrectomy. No evidence for local recurrence. 2. Right lower lobe reticular nodular opacities which may represent scarring versus etiologies. Atten tion on follow-up exam. 3. Colonic diverticulosis without evidence for acute diverticulitis.
== END | disposition home or self-care (01) ==
LOC: RADCTMAIN 11:51
PROVIDERS: ATTEND Urology
DX: C64.1 Malignant neoplasm of right kidney, except renal pelvis (principal); C61 Malignant neoplasm of prostate; K57.30 Diverticulosis of large intestine without perforation or abscess without bleeding; R06.02 Shortness of breath; R91.8 Other nonspecific abnormal finding of lung field; Z90.5 Acquired absence of kidney
CPT/HCPCS: 80053; 71046; 74160; 36415; Q9967

== ENCOUNTER → 2023-12-20 | Outpatient (CLI) | payer MEDICARE | END | disposition home or self-care (01) | LOC: LABWHC1 09:58 | PROVIDERS: ATTEND Urology | DX: C61 Malignant neoplasm of prostate (principal) | CPT/HCPCS: 36415; 84153 ==

== ENCOUNTER → 2024-06-19 | Outpatient (CLI) | payer MEDICARE ==
--- NOTE | 2024-06-19 11:08 | XR ---
EXAMINATION TYPE: XR chest 2V DATE OF EXAM: 06/19/2024 10:22 AM COMPARISON: 06/28/2023 CLINICAL INDICATION: Male, 88 years old with history of C64.1 MALIGNANT NEOPLASM OF RIGHT KIDNEY, EXC [id number], TECHNIQUE: XR chest 2V view(s) obtained. FINDINGS: The heart size is normal. The pulmonary vasculature is normal. Very minimal pleural fluid may be at the costophrenic angles. No suspicious changes suggest metastati c disease. Osseous structures appear normal. No expansile lesions evident. No suspicious radiopaque foreign bodies evident. There appears to be cholecystectomy clips in the shirley ged field of view. IMPRESSION: 1. Very minimal pleural fluid and the costophrenic angles. 2. No mechanical implants identified within the [id number]. [facility], , 06/19/2024 11:05 AM
== END | disposition home or self-care (01) ==
LOC: RADXRMAIN 10:06
PROVIDERS: ATTEND Urology
DX: C64.1 Malignant neoplasm of right kidney, except renal pelvis (principal); C61 Malignant neoplasm of prostate
CPT/HCPCS: 71046; 84153

== ENCOUNTER → 2024-08-11 | Outpatient (CLI) | payer MEDICARE ==
--- NOTE | 2024-08-13 02:23 | PE ---
EXAMINATION TYPE: PET CT fusion skull to thigh DATE OF EXAM: 08/11/2024 CLINICAL INDICATION:Male, 88 years old with history of C61 PROSTATE CANCER; TECHNIQUE: Following the intravenous administration of 6.64 mCi of Ga-68 Illuccix (PSMA), whole bod y images are performed from the skull base to the midthigh. Images are reviewed on the computer in t he coronal, axial, and sagittal planes. Reconstructed rotating images are created on independent wor kstation and reviewed on the computer. A non-contrast CT is performed in conjunction with the PET s can. CT DLP: 358.31 mGycm, Automated exposure control for dose reduction was used. COMPARISON: CT 06/28/2023, 06/24/2020, 06/23/2019, 09/30/2018, 02/18/2018, PET/CT None, MRI: None FINDINGS: Mediastinal SUV mean is 1.3. Hepatic parenchyma SUV mean is 11.4. SKULL BASE AND NECK: No suspicious radiotracer activity. CHEST, MEDIASTINUM, AND HILAR REGION: No suspicious radiotracer activity. ABDOMEN AND PELVIS: Postsurgical changes from prostatectomy. No suspicious radiotracer activity within the surgical bed. Left external iliac chain 9 mm short axis lymph node with radiotracer uptake demonstrating a maximum SUV of. MUSCULOSKELETAL STRUCTURES: Multiple foci of radiotracer uptake identified within the osseous structures with corresponding subtl e sclerosis. Examples include a posterior mid T3 vertebral body focus of radiotracer uptake with a maximum SUV of 11.5. Left scapular focus of radiotracer uptake with a maximum SUV of 15.4. Right lateral fifth rib focus of radiotracer uptake with a maximum SUV of 4.7. Anterior right sixth costochondral junction focus of radiotracer activity with a maximum SUV of 5.9. Anterior T9 vertebral body focus radiotracer uptake with a maximum SUV of 9.8. Posterior T10 vertebral body focus of radiotracer uptake with a maximum SUV of 23.5. Anterior L3 vertebral body focus of radiotracer uptake with a maximum SUV of 22.6. Right iliac crest focus radiotracer uptake with a maximum SUV of 11.5. Right iliac bone focus of radiotracer uptake with a maximum SUV of 24.2. Largest lesion is within the left superior pubic ramus with focus of radiotracer uptake with a maximu m SUV of 23.5. OTHER CT: Bilateral aphakia. Atherosclerotic calcification of the intracranial vasculature. Bilateral carotid bulb calcifications. Atherosclerotic calcification of the aorta and its branches. Small og nary calcifications. Gallbladder surgically absent. Postsurgical changes from partial right nephrecto my redemonstrated. Retroaortic left renal vein. Distal colonic diverticulosis without evidence for ac [place] diverticulitis. Degenerative changes of bilateral SI joints. Multilevel degenerative disc disease . Small bilateral pleural effusions with associated atelectasis. Mild centrilobular emphysematous carlota nges. IMPRESSION: 1. Postsurgical changes from prostatectomy without evidence of local recurrence within the prostatec rivas bed. However there are multiple foci of radiotracer uptake within the osseous structures consist ent with metastatic disease. Additionally there is a nonenlarged left external iliac chain lymph node with radiotracer uptake consistent with metastatic disease. 2. Postsurgical changes from right partial nephrectomy. 3. Trace bilateral pleural effusions. [facility], , 08/13/2024 2:21 AM
== END | disposition home or self-care (01) ==
LOC: RADPETMAIN 11:19
PROVIDERS: ATTEND Urology
DX: C61 Malignant neoplasm of prostate (principal); Z90.5 Acquired absence of kidney; J90 Pleural effusion, not elsewhere classified
CPT/HCPCS: 78815; A9596

== ENCOUNTER → 2024-10-26 | Outpatient (CLI) | payer MEDICARE | END | disposition home or self-care (01) | LOC: LABWHC1 11:15 | PROVIDERS: ATTEND Urology | DX: C61 Malignant neoplasm of prostate (principal) | CPT/HCPCS: 36415; 84153 ==